=== PATIENT | male | born 1990 | race Two or more races ===

== ENCOUNTER 2024-07-22 19:35 | Emergency (ER) | payer MEDICAID, SELFPAY ==
[2024-07-22 19:35] VITALS: BMI 30.7
[2024-07-22 19:59] VITALS: BP 124/83; PULSE 117; RESP 19; TEMP 37.2; O2SAT 97
--- NOTE | 2024-07-22 20:03 | XR_ITS ---
Examination: Hand, right 3 views Technique: Hand AP, oblique, lateral 3 views Date and time of exam: July 22, 20242041 hrs. Indications: Right hand second digit swelling beginning 3 days ago. Findings: Prominent soft tissue swelling about the second digit No opaque foreign body No fracture No cortical bone destruction Impression: Prominent soft tissue swelling second digit No opaque foreign body No fracture No jimmy cortical bone destruction second digit
--- NOTE | 2024-07-22 20:03 | PD.EDRME ---
Rapid Medical Screening Exam RME Chief Complaint: Extremity Injury, Upper Time Seen by Provider: 07/22/24 19:41 Vital signs: Vital Signs Temperature 99.0 F 07/22/24 19:59 Pulse Rate 117 H 07/22/24 19:59 Respiratory Rate 19 07/22/24 19:59 Blood Pressure 124/83 07/22/24 19:59 Pulse Oximetry (%) 97 07/22/24 19:59 Oxygen Delivery Method Room Air 07/22/24 19:59
[2024-07-22 20:51] LABS: Basophils % (Auto) 0 % (0-2.5); Eosinophils # (Auto) 0.2 Thou/mm3 (0.0-0.5); Eosinophils % (Auto) 1 % (0-10); Hematocrit 37.9 % (41.0-53.0); Hemoglobin 12.7 g/dL (13.5-16.0); Immature Granulocytes % (Auto) 0 % (0-0); Immature Granulocytes Auto 0.07 Thou/mm3 (0.00-0.00); Lactate (Lactic Acid) 0.8 mMol/L (0.4-2.0); Lymphocytes # (Auto) 2.2 Thou/mm3 (1.0-4.8); Lymphocytes % (Auto) 13 % (10-50); Mean Corpuscular HGB Conc 33.5 g/dl (31.0-37.0); Mean Corpuscular Hemoglobin 26.8 pg (25.0-35.0); Mean Corpuscular Volume 80 fL (80-100); Monocytes # (Auto) 1.3 Thou/mm3 (0.0-0.8); Monocytes % (Auto) 8 % (0-12); Neutrophils # (Auto) 12.3 Thou/mm3 (1.8-7.7); Neutrophils % (Auto) 77 % (37-80); Nucleated Red Blood Cell % 0 /100 WBC (0); Platelet Count 354 Thou/mm3 (140-440); RDW Standard Deviation 37.2 fL (35.1-43.9); Red Blood Count 4.73 Miln/mm3 (4.50-5.90)
[2024-07-22 21:15] LABS: INR 1.1 (0.9-1.3); Prothrombin Time 11.7 Seconds (9.0-12.2)
[2024-07-22 21:20] LABS: Sed Rate (ESR) 63 mm/hr (0-15)
[2024-07-22 21:27] VITALS: BP 121/78; PULSE 101; RESP 19; TEMP 37.2; O2SAT 97
[2024-07-22 21:29] LABS: Alanine Aminotransferase 20 U/L (10-49); Albumin, Serum 4.6 gm/dL (3.5-5.0); Albumin/Globulin Ratio 1.5 (1.2-2.2); Alkaline Phosphatase 60 U/L (46-116); Anion Gap 8 (7-16); Aspartate Amino Transferase 15 U/L (0-34); BUN/Creatinine Ratio 29 Ratio (12-20); Bilirubin,Total 0.5 mg/dL (0.3-1.2); Blood Urea Nitrogen 23 mg/dL (9-23); C-Reactive Protein 9.5 mg/dL (0.0-0.9); Calcium 9.4 mg/dL (8.3-10.6); Calcium (Corrected) 9.4 mg/dL (8.5-10.1); Carbon Dioxide 27.4 mMol/L (20.0-31.0); Chloride 101 mMol/L (98-107); Creatinine (Component) 0.8 mg/dL (0.6-1.3); Estimated Creatinine Clearance 136.4 mL/min (>60); Globulin 3.1 gm/dL (2.3-3.5); Glucose 112 mg/dL (74-106); Osmolality,Calculated 276 (275-295); Potassium 3.7 mMol/L (3.4-5.1); Procalcitonin 0.14 ng/ml (0.0-0.49); Sodium 136 mMol/L (136-145); Total Protein 7.7 gm/dL (5.7-8.2); eGFR > 60 See Note
--- NOTE | 2024-07-22 23:39 | PC.NURSE ---
NO ANSWER FOR CALL BACK TO MAIN ED
== END 2024-07-23 00:23 | disposition left against medical advice (07) ==
PROVIDERS: Physician Assistant; Emergency Provider Emergency Medicine; PCP Nurse Practitioner Family
DX: S49.91XA Unspecified injury of right shoulder and upper arm, initial encounter (principal); X58.XXXA Exposure to other specified factors, initial encounter; Z53.29 Procedure and treatment not carried out because of patient's decision for other reasons
CPT/HCPCS: 36415; 73130; 80053; 83605; 84145; 85025; 85610; 85652; 86140; 87040; 87077; 87186; 99281